=== PATIENT | female | born 1965 | race Caucasian/White ===

== ENCOUNTER 2017-10-11 15:30 | Emergency (ER) | payer OTHER ==
[~2017-10-11] VITALS: Ht 152.4 cm; Wt 62.0 kg
[~2017-10-11 15:30] MED LIST: AMBI10TA PO; ASEN10TA SL; CALCIUM VIT D; CIPR500T4 PO; MVI DAILY; SERT-129 PO
[2017-10-11 15:38] VITALS: BP 158/86; PULSE 94; RESP 16; TEMP 98.7; O2SAT 100
--- NOTE | 2017-10-11 16:52 | PD ---
HPI Chief Complaint: Back/ Neck Pain or Injury Time Seen by Provider: 16:41 Travel History International Travel<30 days: No Contact w/Intl Traveler<30days: No Traveled to known affect area: No History of Present Illness HPI 52-year-old female patient with history of kidney stones, presents to the ER today because she states that she has had a few months history of lower back pains that radiates down her legs and up to her neck area, and she is getting headaches intermittently. She had discussed the issues with her primary care doctor, has been taking hydrocodone for pain and muscle relaxants, and has been referred to see a automotive painter. She denies any difficulty walking , incontinence, fevers, or any other symptoms. She has been given p.o. steroids from her primary care physician in the past as well without significant improvement. She states that the pain at times is an 8 out of 10. She does not know of any exacerbating or alleviating factors. She denies any injuries or new issues. Modifying Factors: None Associated Signs & Symptoms: Lower back pain with radiation down the legs and up to the neck Risk Factors: Kidney stones PFSH Past Medical History Hx Anticoagulant Therapy: No Anxiety: Yes Depression: Yes Diabetes: No Diminished Hearing: No ?: Not : 4 Para: 2 Miscarriage: 2 Past Surgical History Section: Yes ( x2) Cholecystectomy: Yes Other Surgery: Yes (Breast augmentation and stomach tuck) Social History Alcohol Use: Yes (socially) Tobacco Use: No Substance Use: No Allergies-Medications (Allergen,Severity, Reaction): Coded Allergies: morphine (Unverified Allergy, Mild, Restlessness, 10/11/17) Reported Meds & Prescriptions Reported Meds & Active Scripts Active No Active Prescriptions or Reported Medications Review of Systems Except as stated in HPI: all other systems reviewed are Neg Physical Exam Narrative GENERAL: Well-developed middle-age female patient currently in mild distress. Awake and oriented 3. SKIN: Focused skin assessment warm/dry. HEAD: Atraumatic. Normocephalic. EYES: Pupils equal and round. No scleral icterus. No injection or drainage. ENT: No nasal bleeding or discharge. Mucous membranes pink and moist. NECK: Trachea midline. No JVD. Supple. CARDIOVASCULAR: Regular rate and rhythm. No murmur appreciated. RESPIRATORY: No accessory muscle use. Clear to auscultation. Breath sounds equal bilaterally. GASTROINTESTINAL: Abdomen soft, non-tender, nondistended. Hepatic and splenic margins not palpable. MUSCULOSKELETAL: No obvious deformities. No clubbing. No cyanosis. No edema. BACK: No CVA tenderness. No rash. No point tenderness on palpation of the spine. NEUROLOGICAL: Awake and alert. No obvious cranial nerve deficits. Motor grossly within normal limits. Normal speech. No saddle anesthesia. PSYCHIATRIC: Appropriate mood and affect; insight and judgment normal. Data Data Last Documented VS Vital Signs Date Time Temp Pulse Resp B/P (MAP) Pulse Ox O2 Delivery O2 Flow Rate FiO2 10/11/17 16:55 16 10/11/17 15:38 98.7 94 158/86 (110) [address] Abd/Pel W/O Iv Contrast (10/11/17 16:41) Complete Blood Count With Diff (10/11/17 16:41) Comprehensive Metabolic Panel (10/11/17 16:41) Urinalysis - C+S If Indicated (10/11/17 16:41) Labs Laboratory Tests Test 10/11/17 16:53 10/11/17 18:00 White Blood Count 6.9 TH/MM3 Red Blood Count 5.18 MIL/MM3 Hemoglobin 14.8 GM/DL Hematocrit 44.4 % Mean Corpuscular Volume 85.7 FL Mean Corpuscular Hemoglobin 28.6 PG Mean Corpuscular Hemoglobin Concent 33.4 % Red Cell Distribution Width 13.7 % Platelet Count 272 TH/MM3 Mean Platelet Volume 7.4 FL Neutrophils (%) (Auto) 54.2 % Lymphocytes (%) (Auto) 39.3 % Monocytes (%) (Auto) 5.6 % Eosinophils (%) (Auto) 0.5 % Basophils (%) (Auto) 0.4 % Neutrophils # (Auto) 3.8 TH/MM3 Lymphocytes # (Auto) 2.7 TH/MM3 Monocytes # (Auto) 0.4 TH/MM3 Eosinophils # (Auto) 0.0 TH/MM3 Basophils # (Auto) 0.0 TH/MM3 CBC Comment DIFF FINAL Differential Comment Blood Urea Nitrogen 14 MG/DL Creatinine 0.70 MG/DL Random Glucose 88 MG/DL Total Protein 7.5 GM/DL Albumin 4.0 GM/DL Calcium Level 9.5 MG/DL Alkaline Phosphatase 73 U/L Aspartate Amino Transf (AST/SGOT) 15 U/L Alanine Aminotransferase (ALT/SGPT) 21 U/L Total Bilirubin 0.4 MG/DL Sodium Level 138 MEQ/L Potassium Level 3.6 MEQ/L Chloride Level 102 MEQ/L Carbon Dioxide Level 29.5 MEQ/L Anion Gap 7 MEQ/L Estimat Glomerular Filtration Rate 87 ML/MIN Urine Color YELLOW Urine Turbidity CLEAR Urine pH 5.5 Urine Specific [place] LESS/EQUAL 1.005 Urine Protein NEG mg/dL Urine Glucose (UA) NEG mg/dL Urine Ketones NEG mg/dL Urine Occult Blood NEG Urine Nitrite NEG Urine Bilirubin NEG Urine Urobilinogen 0.2 MG/DL Urine Leukocyte Esterase NEG Urine RBC 0-2 /hpf Urine WBC 0-2 /hpf Urine Squamous Epithelial Cells 0-5 /hpf Urine Bacteria NONE /hpf Microscopic Urinalysis Comment CULT NOT INDICATED MDM Medical Decision Making Medical Screen Exam Complete: Yes Emergency Medical Condition: Yes Medical Record Reviewed: Yes Interpretation(s) Laboratory Tests Test 10/11/17 16:53 10/11/17 18:00 Estimat Glomerular Filtration Rate 87 ML/MIN (>89) Last 24 hours Impressions Abdomen/Pelvis CT 10/11/17 1641 Signed Impressions: Service Date/Time: Saturday, October 11, 2017 17:20 - CONCLUSION: Lap band otherwise negative for acute process. Degenerative changes lumbar spine. Moose Crenshaw MD FACR Differential Diagnosis Lower back pains: Degenerative disc disease versus sciatica versus muscle spasms versus kidney stones Narrative Course Patient is reporting no incontinence, no difficulty walking, no fevers. She is not an IV drug user, does not report any substance use. She has had symptoms for at least a month and they have not changed. Lab work did not show significant leukocytosis, UTI, or any significant metabolic issues. Her CAT scan did not show any signs of kidney stone or other acute processes. 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 At this point, my plan would be to release her with follow-up to primary care doctor. Return for any worsening and symptoms as necessary. The plan has been discussed with her and she states understanding. Diagnosis Primary Impression: Lower back pain Med/Other Pt SpecificInfo: Prescription(s) given Scripts Ibuprofen (Ibuprofen) 600 Mg Tab 600 MG PO Q6H Y for Pain/Inflammation, #20 TAB 0 Refills Prov: Alyson Garcia MD 10/11/17 Disposition: 01 DISCHARGE HOME Condition: Stable Alyson Garcia MD Oct 11, 2017 16:52
[2017-10-11 17:12] LABS: CHLORIDE 102 MEQ/L (98-107); SODIUM (NA) 138 MEQ/L (136-145)
[2017-10-11 17:14] LABS: AUTOMATED NEUTROPHIL # 3.8 TH/MM3 (1.8-7.7); BASOPHIL % 0.4 % (0.0-2.0); EOSINOPHIL % 0.5 % (0.0-4.0); HEMATOCRIT 44.4 % (35.0-46.0); HEMOGLOBIN 14.8 GM/DL (11.6-15.3); LYMPH % 39.3 % (9.0-44.0); LYMPHOCYTE # 2.7 TH/MM3 (1.0-4.8); MEAN CELL VOLUME 85.7 FL (80.0-100.0); MEAN CORPUSCULAR HEMOGLOBIN 28.6 PG (27.0-34.0); MEAN CORPUSCULAR HGB CONC 33.4 % (32.0-36.0); MEAN PLATELET VOLUME 7.4 FL (7.0-11.0); MONO % 5.6 % (0.0-8.0); MONOCYTE # 0.4 TH/MM3 (0-0.9); NEUT % 54.2 % (16.0-70.0); PLATELET COUNT 272 TH/MM3 (150-450); RED BLOOD COUNT 5.18 MIL/MM3 (4.00-5.30); RED CELL DISTRIBUTION WIDTH 13.7 % (11.6-17.2); WHITE BLOOD COUNT 6.9 TH/MM3 (4.0-11.0)
[2017-10-11 17:16] LABS: BICARBONATE 29.5 MEQ/L (21.0-32.0); BLOOD UREA NITROGEN 14 MG/DL (7-18); CALCIUM 9.5 MG/DL (8.5-10.1); GLUCOSE,RANDOM 88 MG/DL (74-106)
[2017-10-11 17:19] LABS: ALT (GPT) 21 U/L (10-53); AST (GOT) 15 U/L (15-37); GLOMERULAR FILTRATION RATE 87 ML/MIN (>89)
[2017-10-11 17:21] LABS: TOTAL BILIRUBIN ADULT 0.4 MG/DL (0.2-1.0); TOTAL PROTEIN 7.5 GM/DL (6.4-8.2)
[2017-10-11 17:22] LABS: ALKALINE PHOSPHATASE 73 U/L (45-117)
--- NOTE | 2017-10-11 17:42 | RADRPT ---
EXAM DATE/TIME: 10/11/2017 17:20 [facility] COMPARISON: No previous studies available for comparison. INDICATIONS : Back pain. ORAL CONTRAST: No oral contrast ingested. RADIATION DOSE: 5.42 CTDIvol (mGy) MEDICAL HISTORY : None SURGICAL HISTORY : section. Cholecystectomy.Lap band. ENCOUNTER: Initial ACUITY: 1 month PAIN SCALE: 8/10 LOCATION: Bilateral low back TECHNIQUE: Volumetric scanning of the abdomen and pelvis was performed. Using automated exposure control and ad justment of the mA and/or kV according to patient size, radiation dose was kept as low as reasonably achievable to obtain optimal diagnostic quality images. DICOM format image data is available electro nically for review and comparison. FINDINGS: LOWER LUNGS: The visualized lower lungs are clear. LIVER: Homogeneous density without lesion. There is no dilation of the biliary tree. No calcified [place] es. Without band is noted. SPLEEN: Normal size without lesion. PANCREAS: Within normal limits. KIDNEYS: Normal in size and shape. There is no mass, stone, or hydronephrosis. ADRENAL GLANDS: Within normal limits. VASCULAR: There is no aortic aneurysm. BOWEL/MESENTERY: The stomach, small bowel, and colon demonstrate no acute abnormality. There is no free intraperitone al air or fluid. ABDOMINAL WALL: Within normal limits. RETROPERITONEUM: There is no lymphadenopathy. BLADDER: No wall thickening or mass. REPRODUCTIVE: Within normal limits. INGUINAL: There is no lymphadenopathy or hernia. MUSCULOSKELETAL: Moderate degenerative changes lumbar spine. CONCLUSION: Lap band otherwise negative for acute process. Degenerative changes lumbar spine. Moose Crenshaw MD FACR on October 11, 2017 at 17:38 Board Certified Radiologist. This report was verified electronically.
[2017-10-11 18:31] LABS: BILIRUBIN, URINE NEG (NEG); BLOOD, URINE NEG (NEG); GLUCOSE,URINE NEG (NEG); KETONE, URINE NEG (NEG); NITRITE,URINE NEG (NEG); PH, URINE 5.5 (5.0-8.5); URINE COLOR YELLOW (YELLW/STRAW); URINE LEUKOCYTE ESTERASE NEG (NEG)
[2017-10-11 18:35] LABS: WBC, URINE 0-2 /hpf (0-5)
[2017-10-11 18:36] LABS: RBC, URINE 0-2 /hpf (0-3); SQUAMOUS EPITHELIAL CELL URINE 0-5 /hpf (0-5)
[2017-10-11] MEDS ORDERED: IBUP-232 PO (19:10)
[2017-10-11 19:44] VITALS: BP 134/80
== END 2017-10-11 20:27 | disposition home or self-care (01) ==
LOC: PHED 15:30
DX: M54.5 Low back pain (principal); M51.36 Other intervertebral disc degeneration, lumbar region; F41.9 Anxiety disorder, unspecified; F32.9 Major depressive disorder, single episode, unspecified; Z88.5 Allergy status to narcotic agent; Z87.442 Personal history of urinary calculi
CPT/HCPCS: 74176; 80053; 81001; 85025; 99284

== ENCOUNTER 2017-10-28 13:01 | Emergency (ER) | payer OTHER | END 2017-10-28 15:53 | disposition home or self-care (01) | LOC: PHED 13:01 | DX: S09.90XA Unspecified injury of head, initial encounter (principal); W10.9XXA Fall (on) (from) unspecified stairs and steps, initial encounter; I10 Essential (primary) hypertension; M54.5 Low back pain; F41.9 Anxiety disorder, unspecified; F32.9 Major depressive disorder, single episode, unspecified; M19.90 Unspecified osteoarthritis, unspecified site | CPT/HCPCS: 70450; 72072; 72110; 73564; 99284 ==